=== PATIENT | female | born 1990 | race Asian ===

== ENCOUNTER 2019-06-15 07:54 | Emergency (ER) | payer BC ==
[~2019-06-15] VITALS: Ht 160 cm; Wt 72.0 kg
[2019-06-15] MEDS ORDERED: IBUPROFEN 600MG TABLET PO ONE (08:45)
[2019-06-15 08:52] VITALS: BP 146/90
[2019-06-15] MEDS ORDERED: BACITRACIN ZINC OINT UDPKT TOP ONE (10:15)
== END 2019-06-15 10:32 | disposition home or self-care (01) ==
LOC: ER 07:54
DX: S51.852A Open bite of left forearm, initial encounter (principal); S51.851A Open bite of right forearm, initial encounter; W54.0XXA Bitten by dog, initial encounter; Y93.89 Activity, other specified; Y92.098 Other place in other non-institutional residence as the place of occurrence of the external cause; R03.0 Elevated blood-pressure reading, without diagnosis of hypertension
CPT/HCPCS: 73110; 99283

== ENCOUNTER 2019-06-17 19:52 | Emergency (ER) | payer BC ==
[~2019-06-17] VITALS: Ht 160 cm; Wt 73.0 kg
[2019-06-17 20:10] VITALS: BP 144/94
[2019-06-17] MEDS ORDERED: BACITRACIN ZINC OINT UDPKT TOP ONE (21:15)
== END 2019-06-17 21:32 | disposition home or self-care (01) ==
LOC: ER 19:52
DX: Z48.00 Encounter for change or removal of nonsurgical wound dressing (principal)
CPT/HCPCS: 99281